=== PATIENT | male | born 1945 | race Caucasian/White ===

== ENCOUNTER 2016-02-13 13:41 | Outpatient (CLI) | payer MEDICARE, MEDICAID ==
[2016-02-13 13:57] LABS: Hemoglobin 13.2 g/dL (14.0-18.0)
[2016-02-13 14:07] LABS: Anion Gap 17 mmol/L (10-20); BUN (Urea Nitrogen) 28 mg/dL (8.4-25.7); Calc. Creatinine Clearance 0 mL/min (70-130); Calcium 10.5 mg/dL (7.8-10.44); Carbon Dioxide 22 mmol/L (23-31); Chloride 104 mmol/L (98-107); Estimated GFR-MDRD 57; Glucose 137 mg/dL (83-110); Potassium 4.1 mmol/L (3.5-5.1); Sodium 139 mmol/L (136-145)
[2016-02-13 17:33] LABS: Creatinine, Urine 140.01 mg/dL (63-166)
== END 2016-02-13 13:42 | disposition home or self-care (01) ==
LOC: MADLAB 13:41
PROVIDERS: ATTEND Internal Medicine Nephrology
DX: N18.3 Chronic kidney disease, stage 3 (moderate) (principal); D63.1 Anemia in chronic kidney disease; R80.9 Proteinuria, unspecified
CPT/HCPCS: 36415; 80048; 82570; 84156; 85014; 85018

== ENCOUNTER 2016-03-31 11:15 | Outpatient (CLI) | payer MEDICARE, MEDICAID ==
[2016-03-31 11:42] LABS: #Basophils 0.1 thou/uL (0.0-0.2); #Eosinphils 0.6 thou/uL (0.0-0.7); #Lymphocytes 2.8 thou/uL (1.20-3.40); #Neutrophils 6.1 thou/uL (1.40-6.50); %Eosinophils 5.7 % (0.0-10.0); %Lymphocytes 26.3 % (21.0-51.0); %Monocytes 9.3 % (0.0-10.0); %Neutrophils 57.8 % (42.0-75.0); Hemoglobin 13.5 g/dL (14.0-18.0); Mean Corpuscular HGB CONC 35.6 g/dL (32.0-36.0); Mean Corpuscular Hemoglobin 32.6 pg (27.0-31.0); Mean Corpuscular Volume 91.4 fl (80.0-94.0); Mean Platelet Volume 6.3 fL (7.4-10.4); Platelet Count 332 thou/uL (130-400); RBC Distribution Width 12.6 % (11.5-14.5); Red Blood Cell (RBC) Count 4.14 mill/uL (4.70-6.10); White Blood Cell (WBC) Count 10.5 thou/uL (4.8-10.8)
[2016-03-31 11:49] LABS: Hemoglobin A1c 6.1 % (4.0-6.0)
[2016-03-31 12:22] LABS: ALT (SGPT) 13 U/L (0-55); AST (SGOT) 10 U/L (5-34); Albumin 4.5 g/dL (3.4-4.8); Alkaline Phosphatase 97 U/L (40-150); Anion Gap 19 mmol/L (10-20); BUN (Urea Nitrogen) 31 mg/dL (8.4-25.7); Bilirubin, Total 0.5 mg/dL (0.2-1.2); Calc. Creatinine Clearance 0 mL/min (70-130); Calcium 9.8 mg/dL (7.8-10.44); Carbon Dioxide 22 mmol/L (23-31); Cardiac Risk 3.5 (Less than 4.5); Chloride 103 mmol/L (98-107); Cholesterol 127 mg/dL (< 200 Desired); Estimated GFR-MDRD 55; Globulin 3.1 g/dL (2.4-3.5); Glucose 151 mg/dL (83-110); HDL Cholesterol 36 mg/dL (>60 Neg Risk); LDL Cholesterol, Calculated 62 mg/dL; Potassium 4.7 mmol/L (3.5-5.1); Protein, Total 7.6 g/dL (5.8-8.1); Sodium 139 mmol/L (136-145); Triglycerides 145 mg/dL (Less than 150)
[2016-03-31 17:11] LABS: Creatinine, Urine 154.39 mg/dL (63-166); Microalbumin/Creat Ratio 84.2 mg/g (Less than 30)
== END 2016-03-31 11:16 ==
LOC: MADLABBHPM 11:15
PROVIDERS: ATTEND Family Medicine
DX: E11.9 Type 2 diabetes mellitus without complications (principal); N18.9 Chronic kidney disease, unspecified; E78.5 Hyperlipidemia, unspecified
CPT/HCPCS: 36415; 80053; 80061; 82043; 83036; 85025

== ENCOUNTER 2016-04-17 11:49 | Outpatient (CLI) | payer MEDICARE, MEDICAID ==
[2016-04-17 12:52] LABS: ALT (SGPT) 15 U/L (0-55); AST (SGOT) 13 U/L (5-34); Albumin 4.4 g/dL (3.4-4.8); Alkaline Phosphatase 92 U/L (40-150); Anion Gap 19 mmol/L (10-20); BUN (Urea Nitrogen) 28 mg/dL (8.4-25.7); Bilirubin, Direct 0.2 mg/dL (0.1-0.3); Bilirubin, Total 0.6 mg/dL (0.2-1.2); Calc. Creatinine Clearance 0 mL/min (70-130); Carbon Dioxide 24 mmol/L (23-31); Cardiac Risk 3.8 (Less than 4.5); Chloride 107 mmol/L (98-107); Cholesterol 133 mg/dL (< 200 Desired); Estimated GFR-MDRD 56; Glucose 124 mg/dL (83-110); HDL Cholesterol 35 mg/dL (>60 Neg Risk); LDL Cholesterol, Calculated 69 mg/dL; Potassium 5.5 mmol/L (3.5-5.1); Protein, Total 7.4 g/dL (5.8-8.1); Sodium 144 mmol/L (136-145); Triglycerides 144 mg/dL (Less than 150)
== END 2016-04-17 11:50 | disposition home or self-care (01) ==
LOC: MADLAB 11:49
PROVIDERS: ATTEND Internal Medicine Cardiovascular Disease
DX: E78.2 Mixed hyperlipidemia (principal); I35.0 Nonrheumatic aortic (valve) stenosis; R00.1 Bradycardia, unspecified
CPT/HCPCS: 36415; 80048; 80061; 80076

== ENCOUNTER 2016-06-09 11:57 | Outpatient (CLI) | payer MEDICARE, MEDICAID ==
[2016-06-09 12:26] LABS: Anion Gap 18 mmol/L (10-20); BUN (Urea Nitrogen) 30 mg/dL (8.4-25.7); Calc. Creatinine Clearance 0 mL/min (70-130); Calcium 9.4 mg/dL (7.8-10.44); Carbon Dioxide 22 mmol/L (23-31); Chloride 103 mmol/L (98-107); Estimated GFR-MDRD 46; Glucose 138 mg/dL (83-110); Potassium 4.8 mmol/L (3.5-5.1); Sodium 138 mmol/L (136-145)
== END 2016-06-09 11:58 | disposition home or self-care (01) ==
LOC: MADLAB 11:57
PROVIDERS: ATTEND Internal Medicine Nephrology
DX: I12.9 Hypertensive chronic kidney disease with stage 1 through stage 4 chronic kidney disease, or unspecified chronic kidney disease (principal); N18.3 Chronic kidney disease, stage 3 (moderate); R60.0 Localized edema
CPT/HCPCS: 36415; 80048

== ENCOUNTER 2016-07-04 14:52 | Outpatient (CLI) | payer MEDICARE, MEDICAID ==
[2016-07-04 15:15] LABS: Hemoglobin A1c 6.1 % (4.0-6.0)
[2016-07-04 15:24] LABS: ALT (SGPT) 17 U/L (8-55); AST (SGOT) 15 U/L (5-34); Albumin 4.3 g/dL (3.4-4.8); Alkaline Phosphatase 105 U/L (40-150); Anion Gap 16 mmol/L (10-20); BUN (Urea Nitrogen) 31 mg/dL (8.4-25.7); Bilirubin, Total 0.7 mg/dL (0.2-1.2); Calc. Creatinine Clearance 0 mL/min (70-130); Calcium 9.6 mg/dL (7.8-10.44); Carbon Dioxide 24 mmol/L (23-31); Cardiac Risk 3.9 (Less than 4.5); Chloride 105 mmol/L (98-107); Cholesterol 135 mg/dl (< 200 Desired); Estimated GFR-MDRD 51; Globulin 3.1 g/dL (2.4-3.5); Glucose 129 mg/dL (83-110); HDL Cholesterol 35 mg/dL (>60 Neg Risk); LDL Cholesterol, Calculated 61 mg/dL; Potassium 5.2 mmol/L (3.5-5.1); Protein, Total 7.4 g/dL (5.8-8.1); Sodium 140 mmol/L (136-145); Triglycerides 196 mg/dL (Less than 150)
== END 2016-07-04 14:53 | disposition home or self-care (01) ==
LOC: MADLABBHPM 14:52
PROVIDERS: ATTEND Family Medicine
DX: E78.5 Hyperlipidemia, unspecified (principal); E11.22 Type 2 diabetes mellitus with diabetic chronic kidney disease; I12.9 Hypertensive chronic kidney disease with stage 1 through stage 4 chronic kidney disease, or unspecified chronic kidney disease; N18.9 Chronic kidney disease, unspecified
CPT/HCPCS: 36415; 80053; 80061; 83036

== ENCOUNTER 2016-09-15 11:08 | Outpatient (CLI) | payer MEDICARE, MEDICAID ==
[2016-09-15 12:40] LABS: Anion Gap 16 mmol/L (10-20); BUN (Urea Nitrogen) 27 mg/dL (8.4-25.7); Calc. Creatinine Clearance 0 mL/min (70-130); Calcium 9.5 mg/dL (7.8-10.44); Carbon Dioxide 23 mmol/L (23-31); Chloride 105 mmol/L (98-107); Estimated GFR-MDRD 51; Glucose 79 mg/dL (83-110); Potassium 4.2 mmol/L (3.5-5.1); Sodium 140 mmol/L (136-145)
== END 2016-09-15 11:09 ==
LOC: MADLABBHPM 11:08
PROVIDERS: ATTEND Internal Medicine Nephrology
DX: E87.5 Hyperkalemia (principal)
CPT/HCPCS: 36415; 80048; 82306

== ENCOUNTER 2017-08-21 12:47 | Outpatient (CLI) | payer MEDICARE, MEDICAID ==
[2017-08-21 13:30] LABS: Cardiac Risk 3.9 (Less than 4.5)
== END 2017-08-21 12:48 | disposition home or self-care (01) ==
LOC: MADLAB 12:47
PROVIDERS: ATTEND Internal Medicine Cardiovascular Disease
DX: Z01.810 Encounter for preprocedural cardiovascular examination (principal); E66.8 Other obesity; Z98.61 Coronary angioplasty status
CPT/HCPCS: 36415; 80061

== ENCOUNTER 2017-09-02 13:28 | Outpatient (CLI) | payer MEDICARE, MEDICAID ==
[2017-09-02 14:22] LABS: ALT (SGPT) 13 U/L (8-55); AST (SGOT) 11 U/L (5-34); Albumin 4.3 g/dL (3.4-4.8); Alkaline Phosphatase 79 U/L (40-150); Anion Gap 19 mmol/L (10-20); BUN (Urea Nitrogen) 33 mg/dL (8.4-25.7); Bilirubin, Total 0.6 mg/dL (0.2-1.2); Calc. Creatinine Clearance 0 mL/min (70-130); Calcium 9.6 mg/dL (7.8-10.44); Carbon Dioxide 20 mmol/L (23-31); Cardiac Risk 3.4 (Less than 4.5); Chloride 108 mmol/L (98-107); Cholesterol 130 mg/dl (< 200 Desired); Estimated GFR-MDRD 45; Globulin 3.2 g/dL (2.4-3.5); Glucose 108 mg/dL (83-110); HDL Cholesterol 38 mg/dL (>60 Neg Risk); LDL Cholesterol, Calculated 68 mg/dL; Potassium 4.7 mmol/L (3.5-5.1); Protein, Total 7.5 g/dL (5.8-8.1); Sodium 142 mmol/L (136-145); Triglycerides 118 mg/dL (Less than 150)
[2017-09-02 20:19] LABS: Hemoglobin A1c 6.2 % (4.0-6.0)
== END 2017-09-02 13:29 | disposition home or self-care (01) ==
LOC: MADLABBHPM 13:28
PROVIDERS: ATTEND Family Medicine
DX: E11.22 Type 2 diabetes mellitus with diabetic chronic kidney disease (principal); N18.3 Chronic kidney disease, stage 3 (moderate); E78.5 Hyperlipidemia, unspecified; F17.200 Nicotine dependence, unspecified, uncomplicated
CPT/HCPCS: 36415; 80053; 80061; 83036; 83970

== ENCOUNTER 2017-12-30 12:56 | Outpatient (CLI) | payer MEDICARE, MEDICAID ==
[2017-12-30 13:11] LABS: Hemoglobin 12.3 g/dL (14.0-18.0)
[2017-12-30 13:32] LABS: ALT (SGPT) 16 U/L (8-55); AST (SGOT) 12 U/L (5-34); Albumin 4.6 g/dL (3.4-4.8); Alkaline Phosphatase 136 U/L (40-150); Anion Gap 16 mmol/L (10-20); BUN (Urea Nitrogen) 33 mg/dL (8.4-25.7); Bilirubin, Total 0.5 mg/dL (0.2-1.2); Calc. Creatinine Clearance 0 mL/min (70-130); Calcium 9.4 mg/dL (7.8-10.44); Carbon Dioxide 22 mmol/L (23-31); Cardiac Risk 3.7 (Less than 4.5); Chloride 109 mmol/L (98-107); Cholesterol 148 mg/dl (< 200 Desired); Estimated GFR-MDRD 42; Globulin 3.3 g/dL (2.4-3.5); Glucose 162 mg/dL (83-110); HDL Cholesterol 40 mg/dL (>60 Neg Risk); LDL Cholesterol, Calculated 84 mg/dL; Potassium 4.8 mmol/L (3.5-5.1); Protein, Total 7.9 g/dL (5.8-8.1); Sodium 142 mmol/L (136-145); Triglycerides 118 mg/dL (Less than 150)
[2017-12-30 16:24] LABS: Hemoglobin A1c 5.7 % (4.0-6.0)
[2017-12-30 16:33] LABS: Creatinine, Urine 153.39 mg/dL (63-166)
== END 2017-12-30 12:57 | disposition home or self-care (01) ==
LOC: MADLAB 12:56
PROVIDERS: ATTEND Internal Medicine Nephrology
DX: E11.22 Type 2 diabetes mellitus with diabetic chronic kidney disease (principal); N18.3 Chronic kidney disease, stage 3 (moderate); D63.1 Anemia in chronic kidney disease; E78.5 Hyperlipidemia, unspecified; R80.9 Proteinuria, unspecified
CPT/HCPCS: 36415; 80053; 80061; 82570; 83036; 84156; 85014; 85018

== ENCOUNTER 2018-03-24 11:41 | Outpatient (CLI) | payer MEDICARE, MEDICAID ==
[2018-03-24 12:22] LABS: Hemoglobin 12.3 g/dL (14.0-18.0)
[2018-03-24 12:23] LABS: ALT (SGPT) 16 U/L (8-55); AST (SGOT) 13 U/L (5-34); Albumin 4.3 g/dL (3.4-4.8); Alkaline Phosphatase 106 U/L (40-150); Anion Gap 16 mmol/L (10-20); BUN (Urea Nitrogen) 29 mg/dL (8.4-25.7); Bilirubin, Total 0.4 mg/dL (0.2-1.2); Calc. Creatinine Clearance 0 mL/min (70-130); Calcium 9.5 mg/dL (7.8-10.44); Carbon Dioxide 24 mmol/L (23-31); Chloride 106 mmol/L (98-107); Cholesterol 143 mg/dl (< 200 Desired); Estimated GFR-MDRD 52; Globulin 3.2 g/dL (2.4-3.5); Glucose 128 mg/dL (83-110); HDL Cholesterol 36 mg/dL (>60 Neg Risk); LDL Cholesterol, Calculated 82 mg/dL; Phosphorus 3.7 mg/dL (2.3-4.7); Potassium 4.7 mmol/L (3.5-5.1); Protein, Total 7.5 g/dL (5.8-8.1); Sodium 141 mmol/L (136-145); Triglycerides 126 mg/dL (Less than 150)
[2018-03-24 17:11] LABS: Hemoglobin A1c 6.6 % (4.0-6.0)
[2018-03-24 17:31] LABS: Creatinine, Urine 122.15 mg/dL (63-166)
== END 2018-03-24 11:42 | disposition home or self-care (01) ==
LOC: MADLABBHPM 11:41
PROVIDERS: ATTEND Internal Medicine Nephrology
DX: I12.9 Hypertensive chronic kidney disease with stage 1 through stage 4 chronic kidney disease, or unspecified chronic kidney disease (principal); E11.22 Type 2 diabetes mellitus with diabetic chronic kidney disease; N18.3 Chronic kidney disease, stage 3 (moderate); R80.9 Proteinuria, unspecified; E55.9 Vitamin D deficiency, unspecified
CPT/HCPCS: 36415; 80053; 80061; 82306; 82570; 83036; 83970; 84100; 84156; 85014; 85018